=== PATIENT | female | born 1980 | race American Indian/Alaskan Native ===

== ENCOUNTER 2016-12-15 15:12 | Emergency (ER) | payer OTHER ==
[2016-12-15 16:23] VITALS: BMI 31.6
[2016-12-15 16:26] VITALS: TEMP 98.5
[2016-12-15] MEDS ORDERED: Sodium Chloride 0.9% 500 ML IV STA (16:42)
--- NOTE | 2016-12-15 16:45 | ED PDOC ---
Arrival/HPI - General Chief Complaint: Abdominal Pain Time Seen by Provider: 12/15/16 16:35 Historian: Patient - History of Present Illness Time/Duration: 1 week Symptom Onset: Gradual Symptom Course: Unchanged Quality: Gas Like Severity Level: Mild Activities at Onset: Rest Associated Symptoms (Text): 12/15/16 16:44 Patient complains of approximately a one-week history of lower abdominal pain. No nausea vomiting or diarrhea. No genitourinary symptoms. No vaginal discharge or bleeding. LMP is approximately one month ago. No control. 1 para 1. No fever or chills. No injury or trauma. She appears to be comfortable and in no acute distress. Past Medical History - Infectious Disease Hx of Infectious Diseases: None - Psychiatric Hx Substance Use: No - Surgical History Hx Section: Yes (x1) - Anesthesia Hx Anesthesia: Yes Hx Anesthesia Reactions: No Hx Malignant Hyperthermia: No Family/Social History - Physician Review Nursing Documentation Reviewed: Yes Family/Social History: Unknown Family HX Smoking Status: Never Smoked Hx Alcohol Use: Yes Hx Substance Use: No Allergies/Home Meds Allergies/Adverse Reactions: Allergies No Known Allergies Allergy (Verified 06/18/15 16:13) Home Medications: Home Meds Medication Instructions Recorded Confirmed No Known Home Med 06/20/16 12/15/16 Review of Systems - Physician Review All systems were reviewed & negative as marked: Yes - Review of Systems Respiratory: Normal Cardiovascular: Normal Gastrointestinal: Abdominal Pain. absent: Constipation, Diarrhea, Nausea, Vomiting Genitourinary Female: absent: Dysuria, Frequency, Hematuria, Vaginal Bleeding, Vaginal Discharge Neurological: Normal Physical Exam Vital Signs Temp Pulse Resp BP Pulse Ox 12/15/16 18:09 60 17 112/80 99 12/15/16 16:24 98.5 F 64 18 110/76 100 Temperature: Afebrile Blood Pressure: Normal Pulse: Regular Respiratory Rate: Normal Appearance: Positive for: Well-Appearing, Non-Toxic, Comfortable Pain Distress: None Mental Status: Positive for: Alert and Oriented X 3 - Systems Exam Head: Present: Atraumatic, Normocephalic Pupils: Present: PERRL Extroacular Muscles: Present: EOMI Mouth: Present: Moist Mucous Membranes Neck: Present: Normal Range of Motion Respiratory/Chest: Present: Clear to Auscultation, Good Air Exchange. No: Respiratory Distress, Accessory Muscle Use Cardiovascular: Present: Regular Rate and Rhythm, Normal S1, S2. No: Murmurs Abdomen: Present: Normal Bowel Sounds. No: Tenderness, Distention, Peritoneal Signs, Rebound, Guarding Back: Present: Normal Inspection. No: CVA Tenderness Upper Extremity: Present: Normal Inspection. No: Cyanosis, Edema Lower Extremity: Present: Normal Inspection. No: Edema Neurological: Present: GCS=15, CN II-XII Intact, Speech Normal Skin: Present: Warm, Dry, Normal Color. No: Rashes Psychiatric: Present: Alert, Oriented x 3, Normal Insight, Normal Concentration Medical Decision Making ED Course and Treatment: 12/15/16 16:45 Point of care urine is positive. Type and Rh has been ordered along with beta quantitative and an ultrasound to rule out ectopic . 12/15/16 20:21 Discussed with the V read radiologist who after being informed that the beta Quant was 500 and not 5000 believes that this is not an ectopic . Also discussed with the county engineer who requests serial beta quant and follow-up in the office. - Lab Interpretations Lab Results: 12/15/16 16:40 12/15/16 16:40 Lab Results 12/15/16 16:40: Urine Color Yellow, Urine Appearance Sl cloudy, Urine pH 6.0, Ur Specific [place] >= 1.030, Urine Protein Trace H, Urine Glucose (UA) Negative , Urine Ketones 15 H, Urine Blood Trace-intact H, Urine Nitrate Negative, Urine Bilirubin Negative, Urine Urobilinogen 1.0 H, Ur Leukocyte Esterase Negative, Urine RBC 0 - 2, Urine WBC 0 - 2, Ur Epithelial Cells 6 - 8, Urine Bacteria Trace, Urine HCG, Qual Positive 12/15/16 16:40: Beta HCG, Quant 557.69 H 12/15/16 16:40: Sodium 135, Potassium 4.4, Chloride 105, Carbon Dioxide 18 L, Anion Gap 16, BUN 13, Creatinine 0.8, Est GFR ( Amer) > 60, Est GFR (Non- Af Amer) > 60, Random Glucose 85, Calcium 9.6, Total Bilirubin 0.8, AST 28, ALT 21, Alkaline Phosphatase 83, Total Protein 8.5 H, Albumin 4.6, Globulin 3.8, Albumin/Globulin Ratio 1.2 12/15/16 16:40: WBC 6.9 D, RBC 3.86, Hgb 11.6 L, Hct 33.6 L, MCV 87.0, MCH 30.1 , MCHC 34.5, RDW 13.4, Plt Count 295, MPV 9.0, Gran % 47.9 L, Lymph % (Auto) 41.8 H, [place] % (Auto) 9.5 H, Eos % (Auto) 0.7 L, Baso % (Auto) 0.1, Gran # 3.31 , Lymph # 2.9, [place] # 0.7 H, Eos # 0.1, Baso # 0.01 - RAD Interpretation Radiology Orders: 12/15/16 16:42 OB TRANSVAGINAL [US] Stat - Medication Orders Current Medication Orders: Discontinued Medications Sodium Chloride (Sodium Chloride 0.9%) 500 mls @ 1,000 mls/hr IV .Q30M STA Stop: 12/15/16 17:11 Last Admin: 12/15/16 16:50 Dose: 1,000 mls/hr Disposition/Present on Arrival - Present on Arrival Any Indicators Present on Arrival: No History of DVT/PE: No History of Uncontrolled Diabetes: No Urinary Catheter: No History of Decub. Ulcer: No History Surgical Site Infection Following: None - Disposition Have Diagnosis and Disposition been Completed?: Yes Diagnosis: , Abdominal pain Disposition: HOME/ ROUTINE Disposition Time: 20:22 Patient Plan: Discharge Condition: GOOD Discharge Instructions (ExitCare): Ectopic (ED) Additional Instructions: Repeat beta quantitative in 2 days. Follow-up with [facility] [employer]. Follow-up in the emergency department for severe pain or bleeding. Referrals: PCP,NO [Primary Care Provider] - Follow up with primary Nicki Moran MD [Staff Provider] - Follow up with primary
[2016-12-15 17:20] LABS: BASO # 0.01 K/mm3 (0.0-2.0); BASO % 0.1 % (0.0-3.0); EOS # 0.1 (0.0-0.7); EOS % 0.7 % (1.5-5.0); GRAN # 3.31 (1.4-6.5); GRAN % 47.9 % (50.0-68.0); HEMOGLOBIN 11.6 gm/dL (12.0-16.0); LYMPH # 2.9 (1.2-3.4); LYMPH % 41.8 % (22.0-35.0); MEAN CORPUSCULAR HEMOGLOBIN 30.1 pg (25.0-35.0); MEAN CORPUSCULAR HGB CONC 34.5 g/dl (31.0-37.0); MONO # 0.7 (0.1-0.6); MONO % 9.5 % (1.0-6.0); PLATELET COUNT 295 10^3/uL (120.0-450.0); RBC 3.86 10^6/uL (3.5-6.1); RED CELL DISTRIBUTION WIDTH 13.4 % (11.5-14.5); WHITE BLOOD COUNT 6.9 10^3/ul (4.5-11.0)
[2016-12-15 17:27] LABS: URINE APPEARANCE SL CLOUDY (CLEAR); URINE BILIRUBIN NEGATIVE (NEGATIVE); URINE BLOOD TRACE-INTACT (NEGATIVE); URINE COLOR YELLOW (YELLOW); URINE GLUCOSE (UA) NEGATIVE (NEGATIVE); URINE LEUKOCYTE ESTERASE NEGATIVE Leu/uL (NEGATIVE); URINE NITRATE NEGATIVE (NEGATIVE); URINE PROTEIN TRACE mg/dL (<30 mg/dL)
[2016-12-15 17:29] LABS: HCG,QUALITATIVE URINE POSITIVE (NEGATIVE)
[2016-12-15 17:36] LABS: URINE RBC 0 - 2 /hpf (0-2); URINE WBC 0 - 2 /hpf (0-6)
[2016-12-15 17:37] LABS: URINE BACTERIA TRACE (NEG)
[2016-12-15 17:41] LABS: ALB/GLOB RATIO 1.2 (1.1-1.8); ALBUMIN 4.6 g/dL (3.0-4.8); ALT/SGPT 21 U/L (7-56); AST/SGOT 28 U/L (15-39); BLOOD UREA NITROGEN 13 mg/dL (7-21); CALCIUM 9.6 mg/dL (8.4-10.5); GFR AFRICAN-AMERICAN > 60; GFR NON-AFRICAN AMERICAN > 60
[2016-12-15 18:09] VITALS: PULSE 60; RESP 17
--- NOTE | 2016-12-15 20:05 | US ---
EXAM: US Pelvis, Transabdominal US Pelvis, Transvaginal CLINICAL HISTORY: 35 years old, female; Pain and abnormal findings; Abnormal radiologic study of abdomen/pelvis; complicated by abdominal or pelvic pain; Lower; First trimester; Gestational age or lmp: ? ; Additional info: R/O ectopic TECHNIQUE: Real-time transabdominal and transvaginal obstetrical ultrasound of the maternal pelvis with image documentation. Transvaginal imaging was used for better evaluation of the adnexa. EXAM DATE/TIME: 12/15/2016 4:42 PM COMPARISON: No relevant prior studies available. FINDINGS: Uterus: Measures 7.5 x 4.9 x 5.6 cm. No intrauterine gestation is seen. Endometrial stripe measures 1.6 cm in thickness. Cervix appears closed. Right ovary: Measures 2.7 x 1.4 x 2.4 cm. A 7 mm round, cystic, masslike area is seen in the right adnexa, which closely abuts the right ovary. It is difficult to tell whether this is located within or adjacent to the right ovary. It has a ringlike structure within it, with an appearance suggestive of a yolk sac. No pole is seen. Flow seen in the right ovary on color and Doppler imaging, with no evidence of torsion. Small amount of free fluid seen in the right adnexa, abutting the right ovary, which does not appear complex/echogenic. Left ovary: Within normal limits in appearance. Measures 2.1 x 1.5 x 1.9 cm Flow seen in the left ovary on color and Doppler imaging, with no evidence of torsion. Cul-de-sac: Small amount of free fluid identified. Ms. does not appears complex/echogenic. IMPRESSION: No intrauterine gestation seen. Patient's quantitative beta-hCG level is reportedly 5007. Small 7 mm round, cystic mass in the right adnexa, with a ringlike structure within it suggestive of a a yolk sac. It is difficult to tell whether this mass is located within or adjacent to the right ovary. Cannot exclude a small right adnexal ectopic (versus a complex right ovarian follicle). Small amount of right adnexal fluid, which does not appear complex/echogenic. See above for remaining findings.
[2016-12-15 20:34] VITALS: BP 115/82; O2SAT 100
== END 2016-12-15 20:33 | disposition home or self-care (01) ==
LOC: ED 15:12
DX: O26.899 Other specified pregnancy related conditions, unspecified trimester (principal); R10.9 Unspecified abdominal pain; Z3A.00 Weeks of gestation of pregnancy not specified
CPT/HCPCS: 76817; 80053; 81001; 84702; 84703; 85025; 99285; J7040

== ENCOUNTER 2017-04-16 16:09 | Emergency (ER) | payer OTHER ==
[2017-04-16 16:09] VITALS: BMI 31.6
--- NOTE | 2017-04-16 16:13 | ED PDOC ---
Arrival/HPI - General Time Seen by Provider: 04/16/17 16:12 Historian: Patient - History of Present Illness Narrative History of Present Illness (Text): 04/16/17 16:12 36 y/o female, no significant pmh, nkda, c/o painful lump on the left side of the head for the past 2 days. Pt. stated that she is approx. 32 weeks , noticed to have a painful lump yesterday, no fever or chills, no night sweat, no rash, no dizziness, no palpitation, no other medical or psychological complaints. Pt. has no vaginal bleeding or discharge, no abdominal or pelvic pain, no other medical or psychological complaints. Past Medical History - Provider Review Nursing Documentation Reviewed: Yes - Infectious Disease Hx of Infectious Diseases: None - Psychiatric Hx Substance Use: No - Surgical History Hx Section: Yes (x1) - Anesthesia Hx Anesthesia: Yes Hx Anesthesia Reactions: No Hx Malignant Hyperthermia: No Family/Social History - Physician Review Nursing Documentation Reviewed: Yes Family/Social History: Unknown Family HX Smoking Status: Never Smoked Hx Alcohol Use: Yes Hx Substance Use: No Allergies/Home Meds Allergies/Adverse Reactions: Allergies No Known Allergies Allergy (Verified 04/16/17 16:29) Home Medications: Home Meds Medication Instructions Recorded Confirmed No Known Home Med 06/20/16 04/16/17 Review of Systems - Review of Systems Constitutional: absent: Fatigue, Fevers Eyes: absent: Vision Changes ENT: absent: Hearing Changes Respiratory: absent: SOB, Cough Cardiovascular: absent: Chest Pain Gastrointestinal: absent: Abdominal Pain, Nausea, Vomiting Skin: Skin Lesions. absent: Rash, Pruritis, Laceration, Abscess, Ulcer, Cellulitis Neurological: absent: Headache, Dizziness, Speech Changes Psychiatric: absent: Anxiety, Depression Physical Exam Vital Signs Reviewed: Yes Vital Signs Temp Pulse Resp BP Pulse Ox 04/16/17 16:35 98.7 F 81 18 102/67 99 04/16/17 16:29 98.7 F 81 16 102/67 100 Temperature: Afebrile Blood Pressure: Normal Pulse: Regular Respiratory Rate: Normal Appearance: Positive for: Well-Appearing, Non-Toxic, Comfortable Pain Distress: Mild Mental Status: Positive for: Alert and Oriented X 3 - Systems Exam Head: Present: Atraumatic, Normocephalic Pupils: Present: PERRL Extroacular Muscles: Present: EOMI Conjunctiva: Present: Normal Mouth: Present: Moist Mucous Membranes Neck: Present: Normal Range of Motion Respiratory/Chest: Present: Clear to Auscultation, Good Air Exchange. No: Respiratory Distress, Accessory Muscle Use Cardiovascular: Present: Regular Rate and Rhythm, Normal S1, S2. No: Murmurs Abdomen: Present: Normal Bowel Sounds. No: Tenderness, Distention, Peritoneal Signs Back: Present: Normal Inspection Upper Extremity: Present: Normal Inspection. No: Cyanosis, Edema Lower Extremity: Present: Normal Inspection. No: Edema Neurological: Present: GCS=15, Speech Normal, Motor Func Grossly Intact, Gait Normal, Memory Normal Skin: Present: Warm, Dry, Rashes (lt. lateral preauricular region visible and palpable approx. less than 0.5cm diameter carbuncle noted with no cellulitis or streaking, no vescicular lesion, no ulcers. ), Normal Color Psychiatric: Present: Alert, Oriented x 3, Normal Insight, Normal Concentration Medical Decision Making ED Course and Treatment: 04/16/17 16:51 -Bed side sonogram performed by kalli with no visible cavity abscess, clinically there is no fluctuant abscess. -I discussed with the patient to have supportive treatment which including warm compress and return to the for I&D with antibiotic if it's worsening. Pt. preferred to be treated conservatively and avoid medication if possible. -I discussed with Dr. Draper about the supportive care and no antibiotic at this time which he agreed on the treatment and dispo. -Discharge home with education on warm compress, return to the ER for any worsening swelling and worsening pain, keep the carbuncle site dry and clean, follow up with your own pmd and general surgeon within 4 days, return to the ER sooner for any new or worsening signs or symptoms. - PA / ACCOUNT MANAGEMENT ASSISTANT / Resident Statement MD/DO has reviewed & agrees with the documentation as recorded. Disposition/Present on Arrival - Present on Arrival Any Indicators Present on Arrival: No History of DVT/PE: No History of Uncontrolled Diabetes: No Urinary Catheter: No History of Decub. Ulcer: No History Surgical Site Infection Following: None - Disposition Have Diagnosis and Disposition been Completed?: Yes Diagnosis: Carbuncle Disposition: HOME/ ROUTINE Disposition Time: 16:52 Patient Plan: Discharge Patient Problems: Current Active Problems Problem Status Onset Carbuncle Acute Condition: GOOD Additional Instructions: -Discharge home with education on warm compress, return to the ER for any worsening swelling and worsening pain, keep the carbuncle site dry and clean, follow up with your own pmd and general surgeon within 4 days, return to the ER sooner for any new or worsening signs or symptoms. Referrals: Kofi Collins MD [Staff Provider] - Follow up with primary Feli Larkin MD [Staff Provider] - Follow up with primary Jori Ch MD [Staff Provider] - Follow up with primary Forms: WORK NOTE
[2017-04-16 16:57] VITALS: BP 102/67; PULSE 81; RESP 18; TEMP 98.7; O2SAT 99
== END 2017-04-16 17:12 | disposition home or self-care (01) ==
LOC: ED 16:09
DX: L02.03 Carbuncle of face (principal)